=== PATIENT | male | born 1965 | race Caucasian/White ===

== ENCOUNTER 2016-10-31 11:41 | Inpatient (IN) | payer OTHER ==
[2016-10-31 12:16] VITALS: BMI 32.8
--- NOTE | 2016-10-31 13:31 | HP ---
CIWA Score - CIWA Score Nausea/Vomitin-No Nausea/No Vomiting Muscle Tremors: 3 Anxiety: 3 Agitation: 4-Moderately Restless Paroxysmal Sweats: 3 Orientation: 0-Oriented Tacttile Disturbances: 0-None Auditory Disturbances: 0-None Visual Disturbances: 0-None Headache: 0-None Present CIWA-Ar Total Score: 13 Admission ROS BHS - HPI Chief Complaint: I need to get myself clean and stop drinking. Allergies/Adverse Reactions: Allergies Allergy/AdvReac Type Severity Reaction Status Date / Time No Known Allergies Allergy Verified 10/31/16 13:16 History of Present Illness: pt is a 51yr old male with a history of alcohol dependence seeking detox for treatment. Exam Limitations: Language Barrier - Ebola screening Have you traveled outside of the country in the last 21 days: No Have you had contact with anyone from an Ebola affected area: No Have you been sick,other than usual withdrawal symptoms: No Do you have a fever: No - Review of Systems Constitutional: Diaphoresis, Night Sweats EENT: reports: No Symptoms Reported Respiratory: reports: No Symptoms reported Cardiac: reports: No Symptoms Reported GI: reports: Poor Fluid Intake : reports: No Symptoms Reported Musculoskeletal: reports: No Symptoms Reported Integumentary: reports: Flushing, Sweating Neuro: reports: Tingling, Tremors Endocrine: reports: Excessive Sweating, Flushing, Intolerance to Cold, Intolerance to Heat Hematology: reports: No Symptoms Reported Psychiatric: reports: Judgement Intact, Orientated x3, Agitated, Anxious Other Systems: Reviewed and Negative Patient History - Patient Medical History Hx Anemia: No Hx Asthma: No Hx Chronic Obstructive Pulmonary Disease (COPD): No Hx Cancer: No Hx Cardiac Disorders: No Hx Congestive Heart Failure: No Hx Hypertension: No Hx Hypercholesterolemia: No Hx Pacemaker: No HX Cerebrovascular Accident: No Hx Seizures: No Hx Dementia: No Hx Diabetes: No Hx Gastrointestinal Disorders: No Hx Liver Disease: No Hx Genitourinary Disorders: No Hx Sexually Transmitted Disorders: No Hx Renal Disease (ESRD): No Hx Thyroid Disease: No Hx Human Immunodeficiency Virus (HIV): No Hx Hepatitis C: No (negative) Hx Depression: No Hx Suicide Attempt: No Hx Bipolar Disorder: No Hx Schizophrenia: No - Patient Surgical History Past Surgical History: No Hx Neurologic Surgery: No Hx Cataract Extraction: No Hx Cardiac Surgery: No Hx Lung Surgery: No Hx Breast Surgery: No Hx Breast Biopsy: No Hx Abdominal Surgery: No Hx Appendectomy: No Hx Cholecystectomy: No Hx Genitourinary Surgery: No Hx Section: No Hx Orthopedic Surgery: No Anesthesia Reaction: No - PPD History Previous Implant?: Yes Documented Results: Negative w/o proof Implanted On Prior R Admission?: No PPD to be Administered?: Yes - Reproductive History Patient is a Female of Child Bearing Age (11 -55 yrs old): No - Smoking Cessation Smoking history: Never smoked Have you smoked in the past 12 months: No Hx Chewing Tobacco Use: No Initiated information on smoking cessation: No - Substance & Tx. History Hx Alcohol Use: Yes Hx Substance Use: Yes Substance Use Type: Alcohol, Cocaine Hx Substance Use Treatment: Yes - Substances Abused Cocaine Route: Inhalation Frequency: 1-2 times per week Amount used: $20 Age of first use: 19 Date of Last Use: 10/27/16 Alcohol-beer Route: Oral Frequency: Daily Amount used: 2-6 pks. Age of first use: 14 Date of Last Use: 10/31/16 Family Disease History - Family Disease History Family Disease History: Diabetes: Mother, Brother Admission Physical Exam S - Vital Signs Vital Signs: Vital Signs - 24 hr 10/31/16 12:14 Temperature 98.0 F Pulse Rate 79 Respiratory 18 Rate Blood Pressure 140/83 - Physical General Appearance: Yes: Appropriately Dressed, Moderate Distress, Tremorous, Irritable, Sweating, Anxious HEENTM: Yes: Normal Voice, Rhinorrhea Respiratory: Yes: Lungs Clear, Normal Breath Sounds, No Respiratory Distress Neck: Yes: No masses,lesions,Nodules Breast: Yes: Within Normal Limits Cardiology: Yes: Regular Rhythm, Regular Rate, S1, S2 Abdominal: Yes: Normal Bowel Sounds, Non Tender, Soft Genitourinary: Yes: Within Normal Limits Back: Yes: Normal Inspection Musculoskeletal: Yes: full range of Motion Extremities: Yes: Normal Capillary Refill, Normal Inspection, Tremors Neurological: Yes: Fully Oriented, Alert, Normal Response Integumentary: Yes: Normal Color, Diaphoresis Lymphatic: Yes: Within Normal Limits - Diagnostic (1) Alcohol dependence with uncomplicated withdrawal Current Visit: Yes Status: Chronic (2) Cocaine dependence Current Visit: Yes Status: Chronic Qualifiers: Substance use status: uncomplicated Qualified Code(s): F14.20 - Cocaine dependence, uncomplicated Cleared for Admission [facility] - Detox or Rehab [facility] Level of Care: Medically Managed Detox Regimen/Protocol: Librium [facility] Breath Alcohol Content Breath Alcohol Content: 0.051 Urine Drug Screen - Results Drug Screen Negative: No Urine Drug Screen Results: MARK-Cocaine
[2016-10-31] MEDS ORDERED: hydrOXYzine PAMOATE 50 MG CAPSULE (FP) PO PRN (13:32)
[2016-10-31] MEDS ORDERED: ACETAMINOPHEN 325 MG TABLET (FP) PO PRN (13:32)
[2016-10-31] MEDS ORDERED: MAG HYDROX/AL HYDROX/SIMETH 30 ML UNIT-DOSE CUP PO PRN (13:32)
[2016-10-31] MEDS ORDERED: IBUPROFEN 400 MG TABLET (FP) PO PRN (13:32)
[2016-10-31] MEDS ORDERED: MENTHOL/PHENOL 1 EACH UD MM PRN (13:32)
[2016-10-31] MEDS ORDERED: chlordiazePOXIDE HCL 25 MG CAPSULE PO PRN (13:32)
[2016-10-31] MEDS ORDERED: MAGNESIUM HYDROX 2400MG/30ML ORAL SUSPENSION 30 ML CUP PO PRN (13:32)
[2016-10-31] MEDS ORDERED: guaiFENesin/D-METHORPHAN HB 10 ML UNIT-DOSE CUPS PO PRN (13:32)
[2016-10-31] MEDS ORDERED: LOPERAMIDE HCL 2 MG CAPSULE PO PRN (13:32)
[2016-10-31] MEDS ORDERED: P-EPHED 60MG/TRIPROLIDI 2.5MG TABLET PO PRN (13:32)
[2016-10-31] MEDS ORDERED: MAGNESIUM CITRATE 300 ML BOTTLE PO PRN (13:32)
[2016-10-31] MEDS ORDERED: chlordiazePOXIDE HCL 25 MG CAPSULE PO ONE (15:00)
[2016-10-31] MEDS: chlordiazePOXIDE HCL 25 MG CAPSULE PO SCH ×2 (17:29→22:18)
[2016-10-31 20:46] LABS: URINE APPEARANCE CLEAR; URINE BILIRUBIN NEGATIVE (NEGATIVE); URINE BLOOD NEGATIVE (NEGATIVE); URINE COLOR LTYELLOW; URINE GLUCOSE (UA) NEGATIVE (NEGATIVE); URINE KETONE NEGATIVE (NEGATIVE); URINE LEUK ESTERASE NEGATIVE (NEGATIVE); URINE NITRITE NEGATIVE (NEGATIVE); URINE PROTEIN NEGATIVE (NEGATIVE); URINE UROBILINOGEN NEGATIVE E.U./dl (0.2-1.0)
[2016-10-31] MEDS: diphenhydrAMINE HCL 50 MG CAPSULE PO PRN (22:18)
[2016-10-31] MEDS: THIAMINE HCL 100 MG TABLET (FP) PO SCH (22:18)
[2016-11-01] MEDS: chlordiazePOXIDE HCL 25 MG CAPSULE PO SCH ×4 (05:28→22:17)
[2016-11-01 10:06] LABS: MCH 33.2 pg (25.7-33.7); MCHC 34.1 g/dl (32.0-35.9); MEAN CELL VOLUME 97.2 fl (80-96); MEAN PLT VOLUME 9.1 fl (7.5-11.1); PLATELET COUNT 83 K/MM3 (134-434); RDW 14.1 % (11.9-15.9)
[2016-11-01] MEDS: PRENATAL VITAMINS W/ FOLIC ACID TABLET (FP) PO SCH (10:16)
[2016-11-01] MEDS ORDERED: ONDANSETRON *ODT* 4 MG TABLET SL PRN (11:04)
--- NOTE | 2016-11-01 11:04 | PN ---
[facility] CIWA - CIWA Score Nausea/Vomitin-No Nausea/No Vomiting Muscle Tremors: 4-Moderate,w/Arms Extend Anxiety: 4-Mod. Anxious/Guarded Agitation: 4-Moderately Restless Paroxysmal Sweats: 1-Minimal Palms Moist Orientation: 0-Oriented Tacttile Disturbances: 3-Moderate Itch/Numb/Burn Auditory Disturbances: 0-None Visual Disturbances: 0-None Headache: 0-None Present CIWA-Ar Total Score: 16 BHS Progress Note (SOAP) Subjective: ANXIETY,SWEATS,TREMORS,NAUSEA. Objective: 11/01/16 11:03 Vital Signs Temperature 97.0 F L 11/01/16 09:27 Pulse Rate 86 11/01/16 09:27 Respiratory Rate 20 11/01/16 09:27 Blood Pressure 141/97 11/01/16 09:27 O2 Sat by Pulse Oximetry (%) Laboratory Last Values WBC 4.0 K/mm3 (4.0-10.0) 11/01/16 06:00 RBC 4.55 M/mm3 (4.00-5.60) 11/01/16 06:00 Hgb 15.1 GM/dL (11.7-16.9) 11/01/16 06:00 Hct 44.2 % (35.4-49) 11/01/16 06:00 MCV 97.2 fl (80-96) H 11/01/16 06:00 MCHC 34.1 g/dl (32.0-35.9) 11/01/16 06:00 RDW 14.1 % (11.9-15.9) 11/01/16 06:00 Plt Count 83 K/MM3 (134-434) L 11/01/16 06:00 MPV 9.1 fl (7.5-11.1) 11/01/16 06:00 Urine Color Ltyellow 10/31/16 19:30 Urine Appearance Clear 10/31/16 19:30 Urine pH 9.0 (5.0-8.0) H 10/31/16 19:30 Ur Specific [place] 1.010 (1.001-1.035) 10/31/16 19:30 Urine Protein Negative (NEGATIVE) 10/31/16 19:30 Urine Glucose (UA) Negative (NEGATIVE) 10/31/16 19:30 Urine Ketones Negative (NEGATIVE) 10/31/16 19:30 Urine Blood Negative (NEGATIVE) 10/31/16 19:30 Urine Nitrite Negative (NEGATIVE) 10/31/16 19:30 Urine Bilirubin Negative (NEGATIVE) 10/31/16 19:30 Urine Urobilinogen Negative E.U./dl (0.2-1.0) 10/31/16 19:30 Ur Leukocyte Esterase Negative (NEGATIVE) 10/31/16 19:30 Assessment: 11/01/16 11:03 WITHDRAWAL SX Plan: CONTINUE DETOX
[2016-11-01 11:17] LABS: ALBUMIN 3.6 g/dl (3.4-5.0); ALK PHOS 264 U/L (45-117); ANION GAP 11 (8-16); BILIRUBIN,TOTAL 1.3 mg/dL (0.2-1.0); CALCIUM 8.6 mg/dL (8.5-10.1); CO2 26 mmol/L (21-32); CREATININE 0.8 mg/dL (0.7-1.3); GLUCOSE,RANDOM 100 mg/dL (74-106); SGOT/AST 123 U/L (15-37); SGPT/ALT 59 U/L (12-78); TOT PROT 8.2 g/dl (6.4-8.2)
--- NOTE | 2016-11-01 17:18 | EKG ---
Test Reason : Blood Pressure : / mmHG Vent. Rate : 072 BPM Atrial Rate : 072 BPM P-R Int : 146 ms QRS Dur : 090 ms QT Int : 428 ms P-R-T Axes : 059 015 023 degrees QTc Int : 468 ms NORMAL SINUS RHYTHM WITH SINUS ARRHYTHMIA POSSIBLE LEFT ATRIAL ENLARGEMENT BORDERLINE ECG NO PREVIOUS ECGS AVAILABLE Confirmed by LEODAN SONG MD ([id number]) on 11/01/2016 5:18:29 PM Referred By: Confirmed By:LEODAN SONG MD
[2016-11-01] MEDS: THIAMINE HCL 100 MG TABLET (FP) PO SCH (22:16)
[2016-11-01] MEDS: diphenhydrAMINE HCL 50 MG CAPSULE PO PRN (22:17)
[2016-11-02] MEDS: chlordiazePOXIDE HCL 25 MG CAPSULE PO SCH ×2 (05:54→10:19)
[2016-11-02] MEDS: PRENATAL VITAMINS W/ FOLIC ACID TABLET (FP) PO SCH (10:19)
[2016-11-02] MEDS: POTASSIUM CHLORIDE TABS 20 MEQ TABLET.ER (FP) PO SCH ×2 (13:34→22:20)
[2016-11-02] MEDS: CLOTRIMAZOLE 1% CREAM 15 GM TUBE TP SCH ×2 (13:35→22:20)
[2016-11-02] MEDS: HYDROCORTISONE 1% TOPICAL CREAM 30 GM TUBE TP SCH ×3 (13:36→22:20)
[2016-11-02] MEDS: chlordiazePOXIDE 5 MG CAPSULE PO SCH ×2 (17:21→22:21)
[2016-11-02] MEDS: THIAMINE HCL 100 MG TABLET (FP) PO SCH (22:21)
[2016-11-02] MEDS: diphenhydrAMINE HCL 50 MG CAPSULE PO PRN (22:21)
[2016-11-03] MEDS: chlordiazePOXIDE 5 MG CAPSULE PO SCH ×2 (05:39→10:19)
[2016-11-03] MEDS: PRENATAL VITAMINS W/ FOLIC ACID TABLET (FP) PO SCH (10:19)
[2016-11-03] MEDS: POTASSIUM CHLORIDE TABS 20 MEQ TABLET.ER (FP) PO SCH ×2 (10:19→22:22)
[2016-11-03] MEDS: HYDROCORTISONE 1% TOPICAL CREAM 30 GM TUBE TP SCH ×4 (10:19→22:22)
[2016-11-03] MEDS: CLOTRIMAZOLE 1% CREAM 15 GM TUBE TP SCH ×2 (10:19→22:23)
--- NOTE | 2016-11-03 12:32 | PN ---
BHS Progress Note (SOAP) Subjective: Sweating,interrupted sleep,restless Objective: 11/03/16 12:31 Vital Signs - 8 hr 11/03/16 11/03/16 06:29 09:38 Temperature 96.4 F L 95.5 F L Pulse Rate 75 82 Respiratory 18 18 Rate Blood Pressure 128/92 121/92 Laboratory Tests 10/31/16 11/01/16 11/01/16 19:30 06:00 06:00 WBC 4.0 RBC 4.55 Hgb 15.1 Hct 44.2 MCV 97.2 H MCHC 34.1 RDW 14.1 Plt Count 83 L MPV 9.1 Sodium 142 Potassium 3.3 L Chloride 105 Carbon Dioxide 26 Anion Gap 11 BUN 6 L Creatinine 0.8 Creat Clearance w eGFR > 60 Random Glucose 100 Calcium 8.6 Total Bilirubin 1.3 H AST 123 H ALT 59 Alkaline Phosphatase 264 H Total Protein 8.2 Albumin 3.6 Urine Color Ltyellow Urine Appearance Clear Urine pH 9.0 H Ur Specific [place] 1.010 Urine Protein Negative Urine Glucose (UA) Negative Urine Ketones Negative Urine Blood Negative Urine Nitrite Negative Urine Bilirubin Negative Urine Urobilinogen Negative Ur Leukocyte Esterase Negative RPR Titer 11/01/16 06:00 WBC RBC Hgb Hct MCV MCHC RDW Plt Count MPV Sodium Potassium Chloride Carbon Dioxide Anion Gap BUN Creatinine Creat Clearance w eGFR Random Glucose Calcium Total Bilirubin AST ALT Alkaline Phosphatase Total Protein Albumin Urine Color Urine Appearance Urine pH Ur Specific [place] Urine Protein Urine Glucose (UA) Urine Ketones Urine Blood Urine Nitrite Urine Bilirubin Urine Urobilinogen Ur Leukocyte Esterase RPR Titer Nonreactive pt. is on k-[id number] Assessment: 11/03/16 12:31 Withdrawal sx. Plan: Continue detox
[2016-11-03] MEDS: chlordiazePOXIDE HCL 10 MG CAPSULE PO SCH ×2 (17:37→22:22)
[2016-11-03] MEDS: THIAMINE HCL 100 MG TABLET (FP) PO SCH (22:22)
[2016-11-03] MEDS: diphenhydrAMINE HCL 50 MG CAPSULE PO PRN (22:23)
[2016-11-04] MEDS: chlordiazePOXIDE HCL 10 MG CAPSULE PO SCH (05:41)
[2016-11-04 09:40] VITALS: BP 125/86; PULSE 84; TEMP 97.1
--- NOTE | 2016-11-04 10:07 | DS ---
[facility] Detox Discharge Summary Admission Date: 10/31/16 Discharge Date: 11/04/16 - History Present History: Alcohol Dependence, Cocaine Dependence Pertinent Past History: denies - Physical Exam Results Vital Signs: Vital Signs Temperature 97.1 F L 11/04/16 09:39 Pulse Rate 84 11/04/16 09:39 Respiratory Rate 18 11/04/16 09:39 Blood Pressure 125/86 11/04/16 09:39 O2 Sat by Pulse Oximetry (%) Pertinent Admission Physical Exam Findings: Withdrawal sx. Laboratory Last Values WBC 4.0 K/mm3 (4.0-10.0) 11/01/16 06:00 RBC 4.55 M/mm3 (4.00-5.60) 11/01/16 06:00 Hgb 15.1 GM/dL (11.7-16.9) 11/01/16 06:00 Hct 44.2 % (35.4-49) 11/01/16 06:00 MCV 97.2 fl (80-96) H 11/01/16 06:00 MCHC 34.1 g/dl (32.0-35.9) 11/01/16 06:00 RDW 14.1 % (11.9-15.9) 11/01/16 06:00 Plt Count 83 K/MM3 (134-434) L 11/01/16 06:00 MPV 9.1 fl (7.5-11.1) 11/01/16 06:00 Sodium 142 mmol/L (136-145) 11/01/16 06:00 Potassium 3.3 mmol/L (3.5-5.1) L 11/01/16 06:00 Chloride 105 mmol/L (98-107) 11/01/16 06:00 Carbon Dioxide 26 mmol/L (21-32) 11/01/16 06:00 Anion Gap 11 (8-16) 11/01/16 06:00 BUN 6 mg/dL (7-18) L 11/01/16 06:00 Creatinine 0.8 mg/dL (0.7-1.3) 11/01/16 06:00 Creat Clearance w eGFR > 60 (>60) 11/01/16 06:00 Random Glucose 100 mg/dL (74-106) 11/01/16 06:00 Calcium 8.6 mg/dL (8.5-10.1) 11/01/16 06:00 Total Bilirubin 1.3 mg/dL (0.2-1.0) H 11/01/16 06:00 AST 123 U/L (15-37) H 11/01/16 06:00 ALT 59 U/L (12-78) 11/01/16 06:00 Alkaline Phosphatase 264 U/L (45-117) H 11/01/16 06:00 Total Protein 8.2 g/dl (6.4-8.2) 11/01/16 06:00 Albumin 3.6 g/dl (3.4-5.0) 11/01/16 06:00 Urine Color Ltyellow 10/31/16 19:30 Urine Appearance Clear 10/31/16 19:30 Urine pH 9.0 (5.0-8.0) H 10/31/16 19:30 Ur Specific [place] 1.010 (1.001-1.035) 10/31/16 19:30 Urine Protein Negative (NEGATIVE) 10/31/16 19:30 Urine Glucose (UA) Negative (NEGATIVE) 10/31/16 19:30 Urine Ketones Negative (NEGATIVE) 10/31/16 19:30 Urine Blood Negative (NEGATIVE) 10/31/16 19:30 Urine Nitrite Negative (NEGATIVE) 10/31/16 19:30 Urine Bilirubin Negative (NEGATIVE) 10/31/16 19:30 Urine Urobilinogen Negative E.U./dl (0.2-1.0) 10/31/16 19:30 Ur Leukocyte Esterase Negative (NEGATIVE) 10/31/16 19:30 RPR Titer Nonreactive (NONREACTIVE) 11/01/16 06:00 labs noted,k+ replacement given - Treatment Hospital Course: Detox Protocol Followed, Detoxed Safely, Responded well, Discharged Condition Good, Rehab Referral Accepted Patient has Accepted a Rehab Referral to: [facility] Rehab - Medication Discharge Medications: Ambulatory Orders NK [No Known Home Medication] 10/31/16 - Diagnosis (1) Alcohol dependence with uncomplicated withdrawal Current Visit: Yes Status: Chronic (2) Cocaine dependence Current Visit: Yes Status: Chronic Qualifiers: Substance use status: uncomplicated Qualified Code(s): F14.20 - Cocaine dependence, uncomplicated (3) Hypokalemia Current Visit: Yes Status: Acute - AMA Did Patient Leave Against Medical Advice: No
[2016-11-04] MEDS: POTASSIUM CHLORIDE TABS 20 MEQ TABLET.ER (FP) PO SCH (10:13)
[2016-11-04] MEDS: PRENATAL VITAMINS W/ FOLIC ACID TABLET (FP) PO SCH (10:13)
== END 2016-11-04 10:15 | disposition home or self-care (01) | DRG 774 ==
LOC: YASAS 11:41 → Y3N 14:04
PROVIDERS: ADMIT Internal Medicine Addiction Medicine; ATTEND Internal Medicine Addiction Medicine
PROC: HZ2ZZZZ Detoxification Services for Substance Abuse Treatment (ICD-10-PCS; principal; 2016-11-04)
DX: F10.230 Alcohol dependence with withdrawal, uncomplicated (principal); F14.20 Cocaine dependence, uncomplicated; E87.6 Hypokalemia
CPT/HCPCS: 36415; 80053; 81003; 85027; 86593; 93005; 93010